=== PATIENT | female | born 1990 | race American Indian/Alaskan Native ===

== ENCOUNTER 2017-08-21 21:00 | Outpatient (CLI) | payer OTHER ==
--- NOTE | 2017-08-22 08:58 | Ultrasound Report ---
PELVIC ULTRASOUND: 08/21/2017 CLINICAL INDICATION: Right-sided pain. TECHNIQUE: Transabdominal pelvic ultrasound performed for global evaluation. Transvaginal pelvic ul trasound performed for detailed evaluation. Real-time scanning performed and static images obtained. FINDINGS: The uterus is anteverted, measuring 6.7 x 3.7 x 3.3 cm. The endometrial echo complex damon ures 7 mm. An IUD is noted in the endometrial canal. No focal myometrial lesion is present. The ri ght ovary measures 3.8 x 2.9 x 2.4 cm, and demonstrates a hemorrhagic cyst measuring 2.4 x 1.9 x 1.8 cm. The left ovary measures 2.3 x 2.2 x 1.7 cm, and appears unremarkable. No free fluid is present. IMPRESSION: HEMORRHAGIC RIGHT OVARIAN CYST, MEASURING 2.4 CM. FOLLOWUP IN 2-3 MONTHS IS RECOMMENDED TO DOCUMENT RESOLUTION. JOB #: [id number] EXT JOB #:[id number]
== END 2017-08-21 21:01 | disposition home or self-care (01) ==
LOC: DI 21:00
PROVIDERS: ATTEND Family Medicine
DX: N83.201 Unspecified ovarian cyst, right side (principal)
CPT/HCPCS: 76856

== ENCOUNTER 2018-03-07 07:51 | Outpatient (CLI) | payer OTHER ==
--- NOTE | 2018-03-07 17:17 | MRI Report ---
Procedure Date: 03/07/2018 Accession Number: [id number] / [id number] Procedure: MRI - Thoracic Spine W/O CPT Code: FULL RESULT: EXAM: MRI THORACIC AND LUMBAR SPINE WITHOUT CONTRAST EXAM DATE: 03/07/2018 08:58 AM. CLINICAL HISTORY: Hands/feet tingling. Low back pain. COMPARISON: None. TECHNIQUE: Multiplanar, multisequence T1-weighted and fluid-sensitive sequences of the thoracic and lumbar spine from T12 to S1 without contrast. Other: None. FINDINGS: MRI of the thoracic spine without contrast: Normal segmentation is assumed. The last rib-bearing vertebral body is designated T12. There is minimal straightening of the normal thoracic kyphosis which may be positional. The conus terminates at T12-L1 and is normal. The paraspinal musculature is without significant atrophy. The adrenal glands are unremarkable. The thoracic aorta is of normal caliber. The provided images of the liver and spleen within the [id number] exhibit normal signal intensities. The bone marrow signal intensities are normal. C7-T1: There is no significant disk bulge, central or foraminal stenosis. The facets are normal. T1-T2: There is no significant disk bulge, central or foraminal stenosis. The facets are normal. T2-T3: There is no significant disk bulge, central or foraminal stenosis. The facets are normal. T3-T4: There is no significant disk bulge, central or foraminal stenosis. The facets are normal. T4-T5: There is no significant disk bulge, central or foraminal stenosis. The facets are normal. T5-T6: There is no significant disk bulge, central or foraminal stenosis. The facets are normal. T6-T7: There is no significant disk bulge, central or foraminal stenosis. The facets are normal. T7-T8: There is no significant disk bulge, central or foraminal stenosis. The facets are normal. T8-T9: There is minimal right facet arthropathy. The remainder of the level is normal. T9-T10: There is no significant disk bulge, central or foraminal stenosis. The facets are normal. T10-T11: There is no significant disk bulge, central or foraminal stenosis. The facets are normal. T12-L1: There is moderate left facet arthropathy. The remainder of the level is normal. T12-L1: There is no significant disk bulge, central or foraminal stenosis. The facets are normal. MRI of the lumbar spine without contrast: There is normal alignment of the lumbar spine. The intervertebral disk spaces exhibit normal height and signal intensities. The bone marrow signal intensities are normal. There is a small amount of fluid signal intensity in the superficial space of the lower back likely representing a small amount of dependent edema. There is no significant atrophy of the paraspinal musculature or the psoas musculature. The abdominal aorta is of normal caliber. The kidneys are without evidence of hydronephrosis. L1-L2: There is no significant disk bulge, central or foraminal stenosis. The facets are normal. L2-L3: There is no significant disk bulge, central or foraminal stenosis. The facets are normal. L3-L4: There is no significant disk bulge, central or foraminal stenosis. The facets are normal. L4-L5: There is no significant disk bulge, central or foraminal stenosis. The facets are normal. L5-S1: There is no significant disk bulge, central or foraminal stenosis. The facets are normal. IMPRESSION: 1. There is no significant central or foraminal stenosis within the lumbar spine. 2. There is minimal right facet arthropathy at T8-T9 and moderate left facet arthropathy at T12-L1. There is no significant central canal stenosis within the thoracic spine. Comment: The following findings are so common in adults without low back pain that while we report their presence, they must be interpreted with caution and in the context of the clinical situation. (Reference Rubensvik et al, Spine 2001) Prevalence of findings in patients without low back pain: Disk degeneration (any evidence): 92% Disk desiccation/T2 signal loss: 83% Disk height loss: 56% Disk bulge: 64% Disk protrusion: 32% Annular tear/high intensity zone: 38% RADIA
== END 2018-03-07 07:52 | disposition home or self-care (01) ==
LOC: DI 07:51
PROVIDERS: ATTEND Family Medicine
DX: M47.894 Other spondylosis, thoracic region (principal); M47.895 Other spondylosis, thoracolumbar region
CPT/HCPCS: 72146; 72148